=== PATIENT | male | born 1990 | race Caucasian/White ===

== ENCOUNTER 2025-10-15 20:45 | Observation (INO) | payer OTHER, SELFPAY ==
[2025-10-15 20:02] VITALS: BP 110/68; PULSE 75; RESP 16; TEMP 36.5; O2SAT 99
[2025-10-15 20:18] VITALS: BMI 20.1
[2025-10-15 20:44] VITALS: O2SAT 100
[2025-10-15] MEDS: 0.9% Saline Lock 10 ML Syringe IV (21:21)
[2025-10-15] MEDS: Piperacil/Tazobactam 3.375 GM in 0.9% Normal Saline (50mL MB+) 50 ML IV (21:21)
[2025-10-15] MEDS: 0.9% Normal Saline (1000mL) 1,000 ML 100 ML IV (21:21)
--- OUTSIDE RECORDS SUMMARY | 2025-10-15 21:26 | XMS RPT_ITS | CCD ---
Author Organization [facility] Informat ion Partnership [facility] Care Team Providers Care Operations And Maintenance Manager Name Role Phone Unavailable Primary Care Provider UnavailKEANU Bay DO Primary Care Unavailable KEANU SPANGLER DO Attending Unavailable KEANU SPANGLER DO Attending Unavailable KEANU SPANGLER DO Primary Care Unavailable Problems Problem Classification Problem Date Documented Da te Episodic/Chronic Immunizations and screening for infectious disease (2 sources) Encounter for screening for other viral diseases; Translations: [Encounter for screening for other viral diseases] Onset: 11-28-2023 Episodic Results Test Name Value Interpretation Reference Range Facility .Auto Diffon 11-28-2023 Basophil, Absolute 0.0 10 3/mcL Normal 0.0-0.3 [facility] ([place]) Comment on above: Performed By: #### LIPID, CBC, CMP, ANEU , ADIFF, GFR, HCV1 #### [address] [address] Basophils/100 WBC (Bld) 0.2 % Normal 0.0-2.5 [facility] ([place]) Comment on above: Performed By: #### LIPID, CBC, CMP, ANEU , ADIFF, GFR, HCV1 #### [address] [address] Eosinophil, Absolute 0.1 10 3/mcL Normal 0.0-0.7 [facility] ([place]) Comment on above: Performed By: #### LIPID, CBC, CMP, ANEU , ADIFF, GFR, HCV1 #### [address] [address] Eosinophils/1 00 WBC (Bld) 1.1 % Normal 0.0-6.0 [facility] ([place]) Comment on above: Performed By: #### LIPID, CBC, CMP, ANEU , ADIFF, GFR, HCV1 #### [address] [address] Lymphocyte, Absolute 0.8 10 3/mcL Low 0.9-4.3 [facility] ([place]) Comment on above: Performed By: #### LIPID, CBC, CMP, ANEU , ADIFF, GFR, HCV1 #### [address] [address] Lymphocytes/1 00 WBC (Bld) 8.3 % Low 20.0-40.0 [facility] ([place]) Comment on above: Performed By: #### LIPID, CBC, CMP, ANEU , ADIFF, GFR, HCV1 #### [address] [address] Monocyte, Absolute 0.8 10 3/mcL Normal 0.1-1.4 [facility] ([place]) Comment on above: Performed By: #### LIPID, CBC, CMP, ANEU , ADIFF, GFR, HCV1 #### [address] [address] Monocytes/100 WBC (Bld) 8.6 % Normal 2.0-13.0 [facility] ([place]) Comment on above: Performed By: #### LIPID, CBC, CMP, ANEU , ADIFF, GFR, HCV1 #### [address] [address] Neutrophils/1 00 WBC (Bld) 81.8 % High 50.0-75.0 [facility] ([place]) Comment on above: Performed By: #### LIPID, CBC, CMP, ANEU , ADIFF, GFR, HCV1 #### [address] [address] .GFRon 11-28-2023 GFR >60 Normal [facility] ([place]) Comment on above: Result Comment: GFR Population mean for , Non- Americans Ages 20-29 = 116 mL/min/1.73 sq.m. Ages 30-39 = 107 mL/min/1.73 sq.m. Ages 40-49 = 99 mL/min/1.73 sq.m. Ages 50-59 = 93 mL/min/1.73 sq.m. Ages 60-69 = 85 mL/min/1.73 sq.m. Ages 70+ = 75 mL/min/1.73 sq.m. Chronic Kidney Disease: Less than 60 mL/min/1.73 square meters End Stage Renal Disease: Less than 15 mL/min/1.73 square meters Performed By: #### L IPID, CBC, CMP, ANEU, ADIFF, GFR, HCV1 #### [address] [address] GFR Non- >60 Normal [facility] ([place]) Comment on above: Result Comment: GFR Population mean for , Non- Americans Ages 20-29 = 116 mL/min/1.73 sq.m. Ages 30-39 = 107 mL/min/1.73 sq.m. Ages 40-49 = 99 mL/min/1.73 sq.m. Ages 50-59 = 93 mL/min/1.73 sq.m. Ages 60-69 = 85 mL/min/1.73 sq.m. Ages 70+ = 75 mL/min/1.73 sq.m. Chronic Kidney Disease: Less than 60 mL/min/1.73 square meters End Stage Renal Disease: Less than 15 mL/min/1.73 square meters Performed By: #### L IPID, CBC, CMP, ANEU, ADIFF, GFR, HCV1 #### [address] [address] .NEUABSon 11-28-2023 Neutrophil, Absolute 7.9 10 3/mcL Normal 2.3-8.1 [facility] ([place]) Comment on above: Performed By: #### LIPID, CBC, CMP, ANEU , ADIFF, GFR, HCV1 #### [address] [address] CBCon 11-28-2023 Erythrocyte distribution width (RBC) [Ratio] 13.3 % Normal 11.5-15.5 [facility] ([place]) Comment on above: Performed By: #### LIPID, CBC, CMP, ANEU , ADIFF, GFR, HCV1 #### [address] [address] Hematocrit (Bld) [Volume fraction] 46.3 % Normal 40.0-52.0 [facility] ([place]) Comment on above: Performed By: #### LIPID, CBC, CMP, ANEU , ADIFF, GFR, HCV1 #### [address] [address] Hgb 16.1 G/dL Normal 13.0-17.5 [facility] ([place]) Comment on above: Performed By: #### LIPID, CBC, CMP, ANEU , ADIFF, GFR, HCV1 #### [place] [address] MCH (RBC) [Entitic mass] 33.8 pg High 27.0-33.0 [facility] ([place] Comment on above: Performed By: #### LIPID, CBC, CMP, ANEU , ADIFF, GFR, HCV1 #### [place] [address] MCHC 34.7 G/dL Normal 32.0-36.0 [facility] ([place]) Comment on above: Performed By: #### LIPID, CBC, CMP, ANEU , ADIFF, GFR, HCV1 #### [place] [address] MCV (RBC) [Entitic vol] 97.5 fL Normal 81.0-100.0 [facility] ([place]) Comment on above: Performed By: #### LIPID, CBC, CMP, ANEU , ADIFF, GFR, HCV1 #### [place] [id number] Platelet 219 10 3/mcL Normal 150-450 [facility] ([place]) Comment on above: Performed By: #### LIPID, CBC, CMP, ANEU , ADIFF, GFR, HCV1 #### [place] [address] Platelet mean volume (Bld) [Entitic vol] 9.0 fL Normal 6.4-10.5 [facility] ([place]) Comment on above: Performed By: #### LIPID, CBC, CMP, ANEU , ADIFF, GFR, HCV1 #### [place] [address] RBC 4.75 10 6/mcL Normal 4.50-6.00 [facility] ([place]) Comment on above: Performed By: #### LIPID, CBC, CMP, ANEU , ADIFF, GFR, HCV1 #### [address] [address] WBC 9.7 10 3/mcL Normal 4.5-10.8 [facility] ([place]) Comment on above: Performed By: #### LIPID, CBC, CMP, ANEU , ADIFF, GFR, HCV1 #### [address] [address] CMPon 11-28-2023 Albumin Level 4.6 G/dL Normal 3.2-4.8 [facility] ([place]) Comment on above: Performed By: #### LIPID, CBC, CMP, ANEU , ADIFF, GFR, HCV1 #### [address] [address] Albumin/Globu roberto [Mass ratio] 1.9 {ratio} High 0.9-1.6 [facility] ([place]) Comment on above: Performed By: #### LIPID, CBC, CMP, ANEU , ADIFF, GFR, HCV1 #### [address] [address] ALP [Catalytic activity/Vol] 73 U/L Normal 38-126 [facility] ([place]) Comment on above: Performed By: #### LIPID, CBC, CMP, ANEU , ADIFF, GFR, HCV1 #### [address] [address] ALT [Catalytic activity/Vol] 15 U/L Normal 12-55 [facility] ([place]) Comment on above: Performed By: #### LIPID, CBC, CMP, ANEU , ADIFF, GFR, HCV1 #### [address] [address] AST [Catalytic activity/Vol] 17 U/L Normal 8-34 [facility] ([place]) Comment on above: Performed By: #### LIPID, CBC, CMP, ANEU , ADIFF, GFR, HCV1 #### [address] [address] Bili Total 1.60 mg/dL High 0.20-1.20 [facility] ([place]) Comment on above: Result Comment: Use of this assay is not recommended for patients undergoing treatment with eltrombopag due to the potential for falsely elevated results. Performed By: #### L IPID, CBC, CMP, ANEU, ADIFF, GFR, HCV1 #### [address] [address] BUN/Creatinin e Ratio 15.5 ratio Normal 10.0-22.0 [facility] ([place]) Comment on above: Performed By: #### LIPID, CBC, CMP, ANEU , ADIFF, GFR, HCV1 #### [place] [id number] Calcium [Mass/Vol] 9.7 mg/dL Normal 8.7-10.4 [facility] ([place]) Comment on above: Performed By: #### LIPID, CBC, CMP, ANEU , ADIFF, GFR, HCV1 #### [place] [id number] Chloride [Moles/Vol] 109 mmol/L Normal 98-110 [facility] ([place]) Comment on above: Performed By: #### LIPID, CBC, CMP, ANEU , ADIFF, GFR, HCV1 #### [place] [address] CO2 [Moles/Vol] 24 mmol/L Normal 22-32 [facility] ([place]) Comment on above: Performed By: #### LIPID, CBC, CMP, ANEU , ADIFF, GFR, HCV1 #### [place] [id number] Creatinine [Mass/Vol] 0.97 mg/dL Normal 0.60-1.40 [facility] ([place]) Comment on above: Performed By: #### LIPID, CBC, CMP, ANEU , ADIFF, GFR, HCV1 #### [place] [address] Electrolyte Balance 6.0 mEq/L Normal 4.0-15.0 [facility] ([place]) Comment on above: Performed By: #### LIPID, CBC, CMP, ANEU , ADIFF, GFR, HCV1 #### [address] [address] Globulin 2.4 G/dL Normal 1.5-3.8 [facility] ([place]) Comment on above: Performed By: #### LIPID, CBC, CMP, ANEU , ADIFF, GFR, HCV1 #### [address] [address] Glucose [Mass/Vol] 93 mg/dL Normal 70-110 [facility] ([place]) Comment on above: Performed By: #### LIPID, CBC, CMP, ANEU , ADIFF, GFR, HCV1 #### [address] [address] Potassium [Moles/Vol] 3.6 mmol/L Normal 3.5-5.0 [facility] ([place]) Comment on above: Result Comment: Specimen slightly hemoly zed. Performed By: #### L IPID, CBC, CMP, ANEU, ADIFF, GFR, HCV1 #### [place] [id number] Sodium [Moles/Vol] 139 mmol/L Normal 136-145 [facility] ([place]) Comment on above: Performed By: #### LIPID, CBC, CMP, ANEU , ADIFF, GFR, HCV1 #### [place] [id number] Total Protein 7.0 G/dL Normal 5.7-8.2 [facility] ([place]) Comment on above: Result Comment: Note - New Reference Gilberto padgett in effect 05/30/20 Performed By: #### L IPID, CBC, CMP, ANEU, ADIFF, GFR, HCV1 #### [address] [address] Urea nitrogen [Mass/Vol] 15.0 mg/dL Normal 8.0-22.0 [facility] ([place]) Comment on above: Performed By: #### LIPID, CBC, CMP, ANEU , ADIFF, GFR, HCV1 #### [address] [address] HCVon 11-28-2023 Hep C Ab Non-Reactive Normal Non-Reacti ve [facility] ([place]) Comment on above: Performed By: #### LIPID, CBC, CMP, ANEU , ADIFF, GFR, HCV1 #### [address] [address] Hep C Ab Int Normal [facility] ([place]) Comment on above: Result Comment: Nonreactive: Samples wit h a value < 0.80 are considered nonreactive (negative) for antibodies to HCV. A negative test result does not exclude the possibility of exposure to or infection with HCV. HCV antibodies may be undetectable in some stages of the infection and in some clinical conditions. See Interp Performed By: #### L IPID, CBC, CMP, ANEU, ADIFF, GFR, HCV1 #### [address] [address] LIPIDon 11-28-2023 Cholesterol [Mass/Vol] 164 mg/dL Normal 50-199 [facility] ([place]) Comment on above: Result Comment: Cholesterol Reference In terval: Less than 200 Desirable 200-239 Borderline high risk 240 and above High risk Performed By: #### L IPID, CBC, CMP, ANEU, ADIFF, GFR, HCV1 #### [address] [address] Cholesterol in HDL [Mass/Vol] 51 mg/dL Normal 40-59 [facility] ([place]) Comment on above: Performed By: #### LIPID, CBC, CMP, ANEU , ADIFF, GFR, HCV1 #### [address] [address] Cholesterol in LDL [Mass/Vol] 98 mg/dL Normal 0-129 [facility] ([place]) Comment on above: Performed By: #### LIPID, CBC, CMP, ANEU , ADIFF, GFR, HCV1 #### [address] [address] Triglyceride [Mass/Vol] 75 mg/dL Normal 3-149 [facility] ([place]) Comment on above: Performed By: #### LIPID, CBC, CMP, ANEU , ADIFF, GFR, HCV1 #### [address] [address] MSCon 01-16-2022 [facility] REPORT Normal [facility] DATE OF SERVICE: 07/2022 HISTORY OF PRESENT ILLNESS: This is a 31-year-old male with sore throat, tired, cough, body aches. He said that he had COVID back in October and it feels like a light version of COVID, so he presents now for further evaluation. ALLERGIES: No known drug allergies. PAST MEDICAL HISTORY: Unremarkable. SMOKING HISTORY: He does use a vape pin and does use alcohol. FAMILY HISTORY: Unremarkable. SOCIAL HISTORY: Unremarkable. PHYSICAL EXAMINATION: Vital signs: Weight 147.2 pounds. Blood pressure 114/65, pulse 92, respiratory rate 19, temperature 97.9, pulse oximetry is 98% on room air. General: This is a 31-year-old male. HEENT: Pharynx is inflamed. Neck is supple with positive anterior, negative posterior cervical lymphadenopathy. Heart is regular rate and rhythm. Lungs: Harsh inspiratory and expiratory wheezes are noted with rhonchi. No areas of consolidation or solid pneumonia could be appreciated. Extremities and neurologic were grossly intact. IMPRESSION: Influenza. [facility] PATIENT NAME: SAGAR AYALA [address] [place] MEDICAL REC #: [id number] [place] [address] [facility] REPORT [facility] PHYSICIAN PLAN: Off work until Friday, January 21, 2022. Given Tamiflu 75 mg twice a day for 5 days. Tessalon Perles and chlorpheniramine 4 mg once 4 times a day as needed for congestion. Rest, fluids. Finish all medicines. Follow in 7 to 10 days. Sooner if complications or problems arise. DO KLEBER [id number] SSI File#: [id number] END OF DOCUMENT / CHANGE LOG FOLLOWS Last Edited By Sofie. Signed By Parvin Walters DO #Parvin Davis DO #JULIOCESAR on 01/22/2022 20:56 ET on 01/22/2022 20:56 ET Revision Number - 2 Verified/Reviewed by 01/22/222055 JULIOCESAR [facility] PATIENT NAME: SAGAR AYALA [facility] [address] [place] MEDICAL REC #: [id number] [place] [address] [facility] REPORT STATCARE PHYSICIAN Normal [facility] Encounters Encounter Date Encounter Type Care Provider Facility Start: 11-28-2023 End: 12-03-2023 ambulatory KEANU SPANGLER DO Facility:A Start: 11-28-2023 End: 12-03-2023 Encounter for general adult medical examination without abnormal findings KEANU SPANGLER DO Facility:A Start: 05-17-2023 End: 05-18-2023 ambulatory KEANU SPANGLER DO Facility:A Start: 01-16-2022 End: 01-16-2022 Subsequent hospital visit by physician Parvin Walters Work Phone: [facility] Comment on above: SORE THROAT Payers Date Payer Category Payer Unknown [id number] 1990 Unknown [id number] 1990 Unknown [id number] Social History Date Type Detail Facility Tobacco smoking stat us NHIS Tobacco smoking consumption unknown [facility] Start: 1990 [facility] Assigned At [facility] on [facility] Summary Purpose Family History No Family History Records FoundNo Family History Records Found Advance Directives No Advanced Directives Records FoundNo Advanced Directives Records Found Additional Source Comments Source Comments (unrecognize d section and content) In the event this informatio n is protected by the Federal Confidentiality of Alcohol and Drug Abuse Patient Records regulations: The Federal rules restrict any use of the information to criminally investigate or prosecute any alcohol or drug abuse patient.[facility] (unrecognized sect ion and content) No Status Records FoundNo Status Records Found INFORMATION SOURCE (unrecogn ized section and content) DATE CREATED AUTHOR 01/23/2022 [facility] DATE CREATED AUTHOR AUTHOR'S ORGANIZ ATION 12/05/2023 [facility] ([place]) FOR RECORDS PERTAINING TO PATIENTS WHO ARE OR HAVE BEEN ENROLLED IN A CHEMICAL DEPENDENCY/SUBSTANCEABUSE PROGRAM, SOME INFORMATION MAY BE OMITTED. This clinical summary was aggregated from multiple sources. Caution should be exercised in using it in the provision of clinical care. This summary normalizes information from multiple sources, and as a consequence, information in this document may materially change the coding, format and clinical context of patient data. In addition, data may be omitted in some cases. CLINICAL DECISIONS SHOULD BE BASED ON THE PRIMARY CLINICAL RECORDS. [employer] [facility]. provides no warranty or guarantee of the accuracy or completeness of information in this document.
--- OUTSIDE RECORDS SUMMARY | 2025-10-15 21:27 | XMS RPT_ITS | CCD ---
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 Role Phone Unavailable Primary Care Provider [...] Basophil, Absolute 0.0 10 3/mcL Normal 0.0-0.3 [facility] ([place]) Comment on above: Performed By: #### LIPID, CBC, CMP, ANEU , ADIFF, GFR, HCV1 #### [address] [address] Basophils/100 WBC (Bld) 0.2 % Normal 0.0-2.5 [facility] ([place]) Comment on above: Performed By: #### LIPID, CBC, CMP, ANEU , ADIFF, GFR, HCV1 #### [address] [address] Eosinophil, Absolute 0.1 10 3/mcL Normal 0.0-0.7 [facility] ([place]) Comment on above: Performed By: #### LIPID, CBC, CMP, ANEU , ADIFF, GFR, HCV1 #### [address] [address] Eosinophils/1 00 WBC (Bld) 1.1 % Normal 0.0-6.0 [facility] ([place]) Comment on above: Performed By: #### LIPID, CBC, CMP, ANEU , ADIFF, GFR, HCV1 #### [address] [address] Lymphocyte, Absolute 0.8 10 3/mcL Low 0.9-4.3 [facility] ([place]) Comment on above: Performed By: #### LIPID, CBC, CMP, ANEU , ADIFF, GFR, HCV1 #### [address] [address] Lymphocytes/1 00 WBC (Bld) 8.3 % Low 20.0-40.0 [facility] ([place]) Comment on above: Performed By: #### LIPID, CBC, CMP, ANEU , ADIFF, GFR, HCV1 #### [address] [address] Monocyte, Absolute 0.8 10 3/mcL Normal 0.1-1.4 [facility] ([place]) Comment on above: Performed By: #### LIPID, CBC, CMP, ANEU , ADIFF, GFR, HCV1 #### [address] [address] Monocytes/100 WBC (Bld) 8.6 % Normal 2.0-13.0 [facility] ([place]) Comment on above: Performed By: #### LIPID, CBC, CMP, ANEU , ADIFF, GFR, HCV1 #### [address] [address] Neutrophils/1 00 WBC (Bld) 81.8 % High 50.0-75.0 [facility] ([place]) Comment on above: Performed By: #### LIPID, CBC, CMP, ANEU , ADIFF, GFR, HCV1 #### [address] [address] .GFRon 11-28-2023 GFR >60 Normal [facility] ([place]) Comment on above: Result Comment: GFR [...] CBC, CMP, ANEU, ADIFF, GFR, HCV1 #### [address] [address] GFR Non- >60 Normal [facility] ([place]) Comment on above: Result Comment: GFR Population [...] CBC, CMP, ANEU, ADIFF, GFR, HCV1 #### [address] [address] .NEUABSon 11-28-2023 Neutrophil, Absolute 7.9 10 3/mcL Normal 2.3-8.1 [facility] ([place] Comment on above: Performed By: #### LIPID, CBC, CMP, ANEU , ADIFF, GFR, HCV1 #### [address] [address] CBCon 11-28-2023 Erythrocyte distribution width (RBC) [Ratio] 13.3 % Normal 11.5-15.5 [facility] ([place] Comment on above: Performed By: #### LIPID, CBC, CMP, ANEU , ADIFF, GFR, HCV1 #### [address] [address] Hematocrit (Bld) [Volume fraction] 46.3 % Normal 40.0-52.0 [facility] ([place] Comment on above: Performed By: #### LIPID, CBC, CMP, ANEU , ADIFF, GFR, HCV1 #### [address] [address] Hgb 16.1 G/dL Normal 13.0-17.5 [facility] ([place] Comment on above: Performed By: #### LIPID, CBC, CMP, ANEU , ADIFF, GFR, HCV1 #### [place] [address] MCH (RBC) [Entitic mass] 33.8 pg High 27.0-33.0 [facility] ([place] Comment on above: Performed By: #### LIPID, CBC, CMP, ANEU , ADIFF, GFR, HCV1 #### [place] [address] MCHC 34.7 G/dL Normal 32.0-36.0 [facility] ([place] Comment on above: Performed By: #### LIPID, CBC, CMP, ANEU , ADIFF, GFR, HCV1 #### [place] [address] MCV (RBC) [Entitic vol] 97.5 fL Normal 81.0-100.0 [facility] ([place] Comment on above: Performed By: #### LIPID, CBC, CMP, ANEU , ADIFF, GFR, HCV1 #### [place] [id number] Platelet 219 10 3/mcL Normal 150-450 [facility] ([place]) Comment on above: Performed By: #### LIPID, CBC, CMP, ANEU , ADIFF, GFR, HCV1 #### [place] [address] Platelet mean volume (Bld) [Entitic vol] 9.0 fL Normal 6.4-10.5 [facility] ([place] Comment on above: Performed By: #### LIPID, CBC, CMP, ANEU , ADIFF, GFR, HCV1 #### [place] [address] RBC 4.75 10 6/mcL Normal 4.50-6.00 [facility] ([place]) Comment on above: Performed By: #### LIPID, CBC, CMP, ANEU , ADIFF, GFR, HCV1 #### [address] [address] WBC 9.7 10 3/mcL Normal 4.5-10.8 [facility] ([place] Comment on above: Performed By: #### LIPID, CBC, CMP, ANEU , ADIFF, GFR, HCV1 #### [address] [address] CMPon 11-28-2023 Albumin Level 4.6 G/dL Normal 3.2-4.8 [facility] ([place]) Comment on above: Performed By: #### LIPID, CBC, CMP, ANEU , ADIFF, GFR, HCV1 #### [address] [address] Albumin/Globu roberto [Mass ratio] 1.9 {ratio} High 0.9-1.6 [facility] ([place] Comment on above: Performed By: #### LIPID, CBC, CMP, ANEU , ADIFF, GFR, HCV1 #### [address] [address] ALP [Catalytic activity/Vol] 73 U/L Normal 38-126 [facility] ([place] Comment on above: Performed By: #### LIPID, CBC, CMP, ANEU , ADIFF, GFR, HCV1 #### [address] [address] ALT [Catalytic activity/Vol] 15 U/L Normal 12-55 [facility] ([place] Comment on above: Performed By: #### LIPID, CBC, CMP, ANEU , ADIFF, GFR, HCV1 #### [address] [address] AST [Catalytic activity/Vol] 17 U/L Normal 8-34 [facility] ([place] Comment on above: Performed By: #### LIPID, CBC, CMP, ANEU , ADIFF, GFR, HCV1 #### [address] [address] Bili Total 1.60 mg/dL High 0.20-1.20 [facility] ([place]) Comment on above: Result Comment: Use of this assay is not recommended for patients undergoing treatment with eltrombopag due to the potential for falsely elevated results. Performed By: #### L IPID, CBC, CMP, ANEU, ADIFF, GFR, HCV1 #### [address] [address] BUN/Creatinin e Ratio 15.5 ratio Normal 10.0-22.0 [facility] ([place] Comment on above: Performed By: #### LIPID, CBC, CMP, ANEU , ADIFF, GFR, HCV1 #### [place] [id number] Calcium [Mass/Vol] 9.7 mg/dL Normal 8.7-10.4 [facility] ([place] Comment on above: Performed By: #### LIPID, CBC, CMP, ANEU , ADIFF, GFR, HCV1 #### [place] [id number] Chloride [Moles/Vol] 109 mmol/L Normal 98-110 [facility] ([place] Comment on above: Performed By: #### LIPID, CBC, CMP, ANEU , ADIFF, GFR, HCV1 #### [place] [address] CO2 [Moles/Vol] 24 mmol/L Normal 22-32 [facility] ([place] Comment on above: Performed By: #### LIPID, CBC, CMP, ANEU , ADIFF, GFR, HCV1 #### [place] [id number] Creatinine [Mass/Vol] 0.97 mg/dL Normal 0.60-1.40 [facility] ([place]) Comment on above: Performed By: #### LIPID, CBC, CMP, ANEU , ADIFF, GFR, HCV1 #### [place] [address] Electrolyte Balance 6.0 mEq/L Normal 4.0-15.0 [facility] ([place] Comment on above: Performed By: #### LIPID, CBC, CMP, ANEU , ADIFF, GFR, HCV1 #### [address] [address] Globulin 2.4 G/dL Normal 1.5-3.8 [facility] ([place] Comment on above: Performed By: #### LIPID, CBC, CMP, ANEU , ADIFF, GFR, HCV1 #### [address] [address] Glucose [Mass/Vol] 93 mg/dL Normal 70-110 [facility] ([place] Comment on above: Performed By: #### LIPID, CBC, CMP, ANEU , ADIFF, GFR, HCV1 #### [address] [address] Potassium [Moles/Vol] 3.6 mmol/L Normal 3.5-5.0 [facility] ([place] Comment on above: Result Comment: Specimen slightly hemoly zed. Performed By: #### L IPID, CBC, CMP, ANEU, ADIFF, GFR, HCV1 #### [place] [id number] Sodium [Moles/Vol] 139 mmol/L Normal 136-145 [facility] ([place] Comment on above: Performed By: #### LIPID, CBC, CMP, ANEU , ADIFF, GFR, HCV1 #### [place] [id number] Total Protein 7.0 G/dL Normal 5.7-8.2 [facility] ([place]) Comment on above: Result Comment: Note - New Reference Gilberto padgett in effect 05/30/20 Performed By: #### L IPID, CBC, CMP, ANEU, ADIFF, GFR, HCV1 #### [address] [address] Urea nitrogen [Mass/Vol] 15.0 mg/dL Normal 8.0-22.0 [facility] ([place] Comment on above: Performed By: #### LIPID, CBC, CMP, ANEU , ADIFF, GFR, HCV1 #### [address] [address] HCVon 11-28-2023 Hep C Ab Non-Reactive Normal Non-Reacti ve [facility] ([place] Comment on above: Performed By: #### LIPID, CBC, CMP, ANEU , ADIFF, GFR, HCV1 #### [address] [address] Hep C Ab Int Normal [facility] ([place] Comment on above: Result Comment: Nonreactive: Samples [...] CBC, CMP, ANEU, ADIFF, GFR, HCV1 #### [address] [address] LIPIDon 11-28-2023 Cholesterol [Mass/Vol] 164 mg/dL Normal 50-199 [facility] ([place] Comment on above: Result Comment: Cholesterol Reference In terval: Less than 200 Desirable 200-239 Borderline high risk 240 and above High risk Performed By: #### L IPID, CBC, CMP, ANEU, ADIFF, GFR, HCV1 #### [address] [address] Cholesterol in HDL [Mass/Vol] 51 mg/dL Normal 40-59 [facility] ([place] Comment on above: Performed By: #### LIPID, CBC, CMP, ANEU , ADIFF, GFR, HCV1 #### [address] [address] Cholesterol in LDL [Mass/Vol] 98 mg/dL Normal 0-129 [facility] ([place]) Comment on above: Performed By: #### LIPID, CBC, CMP, ANEU , ADIFF, GFR, HCV1 #### [address] [address] Triglyceride [Mass/Vol] 75 mg/dL Normal 3-149 [facility] ([place] Comment on above: Performed By: #### LIPID, CBC, CMP, ANEU , ADIFF, GFR, HCV1 #### [address] [address] MSCon 01-16-2022 [facility] REPORT Normal [facility] DATE OF SERVICE: 07/2022 HISTORY OF [...] and neurologic were grossly intact. IMPRESSION: Influenza. [facility] PATIENT NAME: SAGAR AYALA [address] [facility] MEDICAL REC #: [id number] [place] [address] [facility] REPORT [facility] PHYSICIAN PLAN: Off work until Friday, January 21, 2022. Given Tamiflu 75 mg twice a day for 5 days. Tessalon Perles and chlorpheniramine 4 mg once 4 times a day as needed for congestion. Rest, fluids. Finish all medicines. Follow in 7 to 10 days. Sooner if complications or problems arise. DO KLEBER Raya/[id number] SSI File#: [id number] END OF DOCUMENT / CHANGE LOG FOLLOWS Last Edited By Sofie. Signed By Parvin Walters DO #Parvin Davis DO #JULIOCESAR on 01/22/2022 20:56 ET on 01/22/2022 20:56 ET Revision Number - 2 Verified/Reviewed by 01/22/222055 JULIOCESAR [facility] PATIENT NAME: SAGAR AYALA [facility] [address] MEDICAL REC #: [id number] [place] [address] [facility] REPORT [facility] PHYSICIAN Normal [facility] Encounters Encounter Date Encounter Type Care Provider Facility Start: 11-28-2023 End: 12-03-2023 ambulatory KEANU SPANGLER DO Facility:A Start: 11-28-2023 End: 12-03-2023 Encounter for general adult medical examination without abnormal findings KEANU SPANGLER DO Facility:A Start: 05-17-2023 End: 05-18-2023 ambulatory KEANU PSANGLER DO Facility:A Start: 01-16-2022 End: 01-16-2022 Subsequent hospital visit by physician Parivn Walters Work Phone: [facility] Comment on above: SORE THROAT Payers Date Payer Category Payer Unknown [id number] 1990 Unknown [id number] 1990 Unknown [id number] Social History Date Type Detail Facility Tobacco smoking stat us NHIS Tobacco smoking consumption unknown [facility] Start: 1990 Sex Assigned At Not on file [facility] Summary Purpose Family History No Family [...] or prosecute any alcohol or drug abuse patient.[facility] (unrecognized sect ion and content) No Status Records FoundNo Status Records Found INFORMATION SOURCE (unrecogn ized section and content) DATE CREATED AUTHOR 01/23/2022 [facility] DATE CREATED AUTHOR AUTHOR'S ORGANIZ ATION 12/05/2023 [facility] ([place] FOR RECORDS PERTAINING TO PATIENTS WHO ARE [...] BE BASED ON THE PRIMARY CLINICAL RECORDS. [employer] [facility]. provides no warranty or guarantee of the accuracy or completeness of information in this document.
[2025-10-16] VITALS (15 sets, daily range): BP systolic 99–125; BP diastolic 58–77; PULSE 60–109; RESP 14–18; TEMP 36.6–37.1; O2SAT 98–100; BMI 20.1
[2025-10-16] MEDS: Piperacil/Tazobactam 3.375 GM in 0.9% Normal Saline (50mL MB+) 50 ML IV (05:28)
[2025-10-16] MEDS: 0.9% Normal Saline (1000mL) 1,000 ML 100 ML IV (05:28)
--- NOTE | 2025-10-16 08:11 | PCM.HP.STD ---
HPI - General General Date of Admission: 10/15/25 HPI Narrative SAGAR AYALA, is a 35 M who presents with abdominal pain. The patient reports his abdominal pain is improved since yesterday. The patient reports that yesterday he had nausea and pain in the right lower quadrant. He denies vomiting or fevers or chills. [facility] Medical History no medical history Allergy/AdvReac Type Severity Reaction Status Date / Time No Known Allergies Allergy Verified 10/15/25 20:26 Social History Smoking Status: Current some day smoker tobacco type: e-cigarettes ROS Constitutional Constitutional: Denies anorexia, chills, fatigue or fever(s) Eyes Eyes: Denies blurry vision Cardiovascular Cardiovascular: Denies chest pain Respiratory/Chest Respiratory/Chest: Denies cough or dyspnea Gastrointestinal Gastrointestinal: Reports abdominal pain and nausea; Denies constipation or vomiting Musculoskeletal Musculoskeletal: Denies abnormal gait Integumentary Integumentary: Denies jaundice Neurologic Neurologic: Denies abnormal gait Vital Signs Vital Signs Vital Signs: 10/15/25 20:02 10/15/25 20:44 10/15/25 23:05 Temperature 97.7 F L Temperature Source Oral Pulse Rate 75 Pulse Strength Normal (2+) Respiratory Rate 16 Respiratory Effort Normal Respiratory Depth Normal Respiratory Pattern Normal Blood Pressure 110/68 Blood Pressure Mean 82 Blood Pressure Source Monitor Blood Pressure Position Sitting Blood Pressure Location Right Arm Pulse Ox 99 100 Oxygen Delivery Method Room Air Room Air 10/16/25 05:31 Temperature 97.8 F Temperature Source Temporal Pulse Rate 62 Pulse Strength Respiratory Rate 16 Respiratory Effort Respiratory Depth Respiratory Pattern Blood Pressure 106/61 Blood Pressure Mean 76 Blood Pressure Source Monitor Blood Pressure Position Semi-Fowlers Blood Pressure Location Right Arm Pulse Ox 98 Oxygen Delivery Method Room Air Weight Weight: 144 lb 9.972 oz Body Mass Index (BMI) 20.1 Physical Exam Const oriented x3 and no apparent distress Resp normal respiratory effort Cardio regular rate and regular rhythm GI soft to palpation Palpation: tender Positive for RLQ Assessment & Plan Assessment/Plan (1) Acute appendicitis: PLAN: The patient was transferred from an outside ER with signs and symptoms of acute appendicitis. CT scan also revealed inflamed appendix with trace fluid in the pelvis. I discussed laparoscopic appendectomy with the patient in detail. I discussed the risks including but not limited to bleeding, infection, injury to other organs around the appendix such as the bowel, bladder, ureter. Patient understands the risks and is willing to proceed with surgery. Alin Solo MD Pager: [facility] [address] [place] [address], [address] [place] [address] Office:
--- NOTE | 2025-10-16 09:10 | PCM.PRE.AN2 ---
ASA Classification* ASA Classification ASA Classification: 2 and E Assessment & Plan Anesthesia* Anesthesia Assessment Anesthesia Assessment: Discussed sedation and/or anesthesia options, risks, benefits, and alternatives with patient/parents/legal guardian/POA. Questions invited. The patient/parents/legal guardian/POA seems to understand and agrees to proceed with anesthesia plan. Reviewed the physical assessment, medical history, allergy history and patient home medications list prior to surgery/procedure/anesthetic and documented any changes. Performed airway and anesthesia risk assessments. Anesthesia Type Anesthesia Type: General Anesthesia Focused Assessment* Temperature: 98 F Pulse Rate: 64 Blood Pressure: 99/61 Respiratory Rate: 18 Pulse Ox: 98 Airway Assessment Mouth opens: >3 cm Mallampati Score: II Labs Anesthesia Preop lab: CBC CHEMISTRY COAG Pre-Assessment Diagnosis/Proposed Procedure Planned Operative Procedure(s): Laproscopic Appendectomy Anesthesia History Anesthesia History - weather observer: Anesthesia History - weather observer Hx Hospitalization Any Problems With Anesthesia No 10/15/25 20:55 Cholinesterase deficiency No 10/15/25 20:55 You/Your Family Experience No 10/15/25 20:55 fever (hyperthermia) with Relationship Recent Exposure to Contagious No 10/15/25 20:55 Disease Does patient have nerve No 10/15/25 20:55 stimulator Patient instructed to have No 10/15/25 20:55 device shut off --Does patient have Pacemaker No 10/16/25 08:54 or ICD? When Was Last Pacemaker Check QUESTION #4 FULL TEXT: You/Your Family Experience fever (hyperthermia) with Anesthesia Last Oral Intake Last Oral intake: Last Oral Intake NPO since 19:00 10/16/25 08:54 Meds taken in AM with sips of water? Meds patient instructed to npo since 189910/15/25 10/16/25 08:54 take am of surgery PONV PONV - weather observer: PONV - weather observer Female HX of Motion Sickness HX of N/V After Surgery Non-Smoker Duration of Surgery greater than 60 minutes Number of Risk Factors PONV Score Height & Weight Height & Weight: Anesthesia: Height & Weight Height 5 ft 11 in 10/16/25 08:54 Weight: 65.6 kg 10/16/25 08:54 Body Mass Index (BMI) 20.1 10/16/25 08:54 Respiratory Assessment Respiratory Assessment - weather observer: Respiratory Tract Infection Hx - weather observer Hx Respiratory Tract Infection No 10/15/25 20:55 STOP Sleep Apnea STOP Sleep Apnea - weather observer: STOP Sleep Apnea - weather observer Hx Hypertension No 10/15/25 20:28 Hx Sleep Apnea No 10/15/25 20:28 CPAP BIPAP Do you snore loudly (louder No 10/15/25 20:28 than talking or can be heard Do you often feel tired/ No 10/15/25 20:28 fatigued/ sleepy during daytime? Has anyone observed you stop No 10/15/25 20:28 breathing during sleep? STOP Results Negative 10/15/25 20:28 QUESTION #5 FULL TEXT : Do you snore loudly (louder than talking or can be heard through closed doors)? 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 Specify any problems Hx of Preganancy in last 3 N/A 10/15/25 20:28 Months Nurse Filling Out Transfusion AHINES 10/15/25 20:28 & Questions: Date: 10/15/25 10/15/25 20:28 Time: 20:30 10/15/25 20:28 Patient unable to answer at this time (ie. confused, unrespo /Reproduction History /Reproductive History - weather observer: /Reproductive Hx- weather observer Hx Now No 10/15/25 20:55 Gestational Age (in weeks): EDC: Hx Hx Para Hx Section SAB No 10/15/25 20:55 Does the father of the baby or his family experience fever w Father of the baby Malignant Hypertension history comment Active Medications Active Medications: Current Medications Generic Name Dose Route Start Last Admin Trade Name Freq PRN Reason Stop Dose Admin Sodium Chloride 250 mls @ 15 mls/hr 10/15/25 20:21 IV .[id number] PRN Saline Flush Sodium Chloride 250 mls @ 15 mls/hr 10/15/25 20:21 IV .[id number] PRN Additional IVPB Infusion Sodium Chloride 1,000 mls @ 100 mls/hr 10/15/25 20:40 10/16/25 05:28 IV 100 mls/hr .Q10H GEORGE Administration Piperacillin Sod/Tazobactam 50 mls @ 12.5 mls/hr 10/15/25 22:00 10/16/25 05:28 Sod 3.375 gm/ Sodium Chloride IV 12.5 mls/hr Q8 GEORGE Administration Lactated Ringer's 1,000 mls @ 15 mls/hr 10/16/25 09:15 IV .Q48H GEORGE Influenza Virus Vacc Trival Recomb 45 mcg 10/16/25 10:00 Flu Vaccine (6mos Up) 45 Mcg/0.5 Ml Syringe IM 10/16/25 10:01 .ONCE ONE Morphine Sulfate 2 - 4 mg 10/15/25 20:37 Morphine 2 Mg/Ml Syringe IV Q2H PRN PRN Pain Score 1-10 Morphine Sulfate 2 - 4 mg 10/15/25 21:00 Morphine 4 Mg/Ml Syringe IV Q2H PRN PRN Pain Score 1-10 Ondansetron HCl 4 mg 10/15/25 20:42 Ondansetron 4 Mg/2 Ml Vial IV Q8H PRN PRN NAUSEA Sodium Chloride 10 - 40 ml 10/15/25 20:21 10/15/25 21:21 0.9% Saline Lock 10 Ml Syringe IV 10 ml UD PRN Administration SALINE FLUSH PFSH Medical History no medical history Allergy/AdvReac Type Severity Reaction Status Date / Time No Known Allergies Allergy Verified 10/15/25 20:26 Social History Smoking Status: Current some day smoker tobacco type: e-cigarettes Review of Systems (Anesthesia) ROS Narrative System reviewed and no additional complaints, except as documented.
--- NOTE | 2025-10-16 09:12 | NURSING ---
0900 patient down to surgery. family present Kelvin Zacarias RN
[2025-10-16] MEDS: Lactated Ringers 1,000 ML 15 ML IV (09:17)
[2025-10-16] MEDS: Midazolam 2 MG/2 ML Syringe IV (09:33)
[2025-10-16] MEDS: fentaNYL 100 MCG/2 ML Ampul IV (09:39)
[2025-10-16] MEDS: Lidocaine 1% (5 ml sdv) 5 ML Vial 3 ML IV (09:39)
[2025-10-16] MEDS: Bupiv/Epi 0.25% 30 ML Vial (09:58)
--- NOTE | 2025-10-16 10:02 | DS.PCM_ITS ---
Providers Date of Admission: 10/15/25 Primary Care Physician: Dr. Yuval Jerry DO Reason For Visit: APPENDICITIS Diagnosis Discharge Diagnosis (1) Acute appendicitis: Status: Acute Code(s): K35.80 - Unspecified acute appendicitis Plan: The patient was transferred from an outside ER with signs and symptoms of acute appendicitis. CT scan also revealed inflamed appendix with trace fluid in the pelvis. I discussed laparoscopic appendectomy with the patient in detail. I discussed the risks including but not limited to bleeding, infection, injury to other organs around the appendix such as the bowel, bladder, ureter. Patient understands the risks and is willing to proceed with surgery. Alin Solo MD Pager: [facility] [address] [place] [address] [address] [place] [address] Office: Medications at Discharge Home Medications oxycodone 5 mg tablet 5 - 10 mg (1 - 2 x 5 mg) PO Q4H PRN PRN Pain Score 4-10 5 days #14 tabs 10/16/25 Hospital Course Operations appendectomy Summary of Care Provided Hospital Course: Patient was admitted to the hospital overnight with right lower quadrant pain after being seen in outside hospital with acute appendicitis. The following morning the patient was taken for surgery and had laparoscopic appendectomy. Once tolerating diet the patient will be discharged home. Weight / BMI Weight Weight: 144 lb 9.972 oz Body Mass Index (BMI) 20.1 D/C Instructions Discharge Activity: May Not Drive (for 2-3 days or while taking narcotic pain medications) May shower in (days): 1 Lifting Restrictions: 15 pounds for 2 weeks. Take 1 week off of work. Additional Activity Instructions: Alternate ibuprofen and Tylenol for pain control, oxycodone for breakthrough pain Call your doctor if your incision/area has: Continuous Slow Oozing, Sudden Increased Bleeding, Increased Pain/ Swelling, Increased Redness and Foul Smelling Discharge Call your doctor if you observe: Fever of 101 or Higher Suture Line Care: Avoid Pulling/Pushing and Avoid Pinching/Bending Remove Dressing in: 2 days Cleanse incision/area with: Soap & Water DC O2, CPAP, BIPAP Needs Home O2 Discharge instructions: No Additional Instructions: Keep dressing clean and dry. Change or remove dressing in 2 days. Leave steri strips for 1 week. May protect with a gauze bandaid. Please Follow Up With: Alin Solo MD When: Please call to schedule 2 week follow up appointment at [phone] Meaningful Use Info Meaningful Use Meaningful Use Diagnoses (Choose all that apply): None applicable Discharge Plan Admission Admit Date/Time: 10/15/25 20:45 Attending Provider: Alin Solo Primary Care Provider: Yuval Jerry Discharge Orders/Prescriptions Prescriptions: New oxycodone 5 mg Tablet 5 - 10 mg PO Q4H PRN PRN (Reason: Pain Score 4-10) 5 Days Qty: 14 0RF Referrals / Follow Up: Yuval Jerry DO [Primary Care Provider, Medical] Disposition Disposition (needs filled in before D/C Order can be placed): Home, Self Care
--- NOTE | 2025-10-16 10:02 | PCM.OPRPT ---
Operative Report (Standard) Operative Information Date of Procedure: 10/16/25 Pre-Operative Diagnosis: Acute appendicitis Post-Operative Diagnosis: Acute appendicitis Surgery/Procedure Performed: Laparoscopic appendectomy order control clerk blood bank: No Type of Anesthesia: General/Regional RN Documented Start/Stop Times: Operation Date: 10/16/25 10:20 Case Time Anesthesia Start 10/16/25 09:24 Into Room 10/16/25 09:24 Procedure Start 10/16/25 09:42 Procedure End 10/16/25 09:58 Procedure Start Time: 09:42 Procedure Stop Time: 09:58 Select all DRAINS/GRAFTS/IMPLANTS that apply: None Estimated Blood Loss: 5 Specimen collected: Yes Description of specimen(s) removed: Appendix Description of surgery: The patient was brought into the operating room and general anesthesia was induced. The left arm was tucked and the abdomen was prepped and draped in usual sterile fashion. A small midline incision was made superior to the umbilicus and deepened to the level of the fascia. The fascia was elevated and incised. The peritoneum was also elevated and incised. A finger sweep was performed and a balloon trocar was placed into the abdomen and inflated. The abdomen was insufflated to 15 mmHg and the camera was inserted and the abdomen was inspected for any injuries upon entering the abdomen. There were none. The patient was placed in Trendelenburg position and a 5 mm ports placed in the left lower quadrant and suprapubic areas under direct visualization. Next using atraumatic bowel graspers the appendix was identified. The appendix was grasped and elevated and Enseal was used to take down the mesoappendix. A stapler was used to come across the base of the appendix. The appendix was then placed in Endo Catch bag and removed through the umbilical incision. The staple line was inspected and found to be hemostatic and intact. The 2 5 mm ports are removed under direct visualization. The balloon trocar was deflated and removed and all the air was removed from the abdomen. The umbilical incision fascia was closed with an 0 Vicryl [id number] suture. The incisions were then irrigated with saline and dried. Local anesthetic was injected into the incision sites. The skin incisions were then closed with interrupted 4-0 Monocryl suture and Steri-Strips. Bandages were applied and the patient was awoken and taken to PACU in stable condition. Patient tolerated the procedure well. Surgical Findings: Inflamed appendix Complications Complications: No Admit VTE Documentation VTE Mechan Device Prophylaxis: SCD's
--- NOTE | 2025-10-16 10:15 | PCM.POST.ANE ---
Anesthesia: Postop Eval I Current Vital Signs Temperature: 98.7 F Pulse Rate: 109 Blood Pressure: 125/58 Respiratory Rate: 14 Pulse Ox: 100 Oxygen Delivery Method: Room Air Assessment Airway patent: Yes Spontaneous unlabored respirations: Yes Mental status: Awake and Calm nausea: No Vomiting: No Anesthesia Complication: No Fluid Hydration Crystalloid volume administer (ml): 200 Total IV fluid infused: 200 Progress Note Post-operative progress note: Pt to PACU awake, VSS report to RN Anesthesia document: Postop Eval 1 completed: Yes
--- NOTE | 2025-10-16 10:20 | APP_PTH ---
PATIENT: SAGAR AYALA LOC: [facility] U#:[id number] AGE/SX: 35/M [place] [facility] [place]: Dr. Alin Solo MD : 1990 BED: 1 DIS: 10/16/2025 SPEC #: [id number] RECD: 10/17/25 07:51 STATUS: ABHILASH REQ #: [id number] BRAIN: 10/16/25 10:[address]: Alin Solo DEPT: SURGICAL PATHOLOGY RECD BY: Anant Crabtree ENTERED: 10/17/25 11:31 SP TYPE: APPENDIX OTHR DR: Dr. Yuval Jerry, Tissues: A - Appendix, NOS Procedures: Surgery Specimen Level III HEADER OPERATION: Laparoscopic appendectomy PRE-OP DIAGNOSIS: Acute appendicitis TISSUE SUBMITTED: A- Appendix MICROSCOPIC DIAGNOSIS A. Appendix, appendectomy: - Acute appendicitis. MICROSCOPIC DESCRIPTION Slides are reviewed. GROSS DESCRIPTION A. Received in formalin labeled with the patient's name and date of . Designated as appendix is a 5.3 x 1.2 cm abrams to erythematous dilated appendix with attached, congested mesoappendix. The margin is inked black and shaved. Sectioning reveals abrams-yellow to red granular mucosa devoid of luminal contents. Definitive mass lesions are not grossly appreciated. Client Application Support Engineer sections are submitted in 2 cassettes, to include the trisected distal tip in both cassettes A1-A2. SD 10/17/2025 CPT:13564
--- NOTE | 2025-10-16 15:29 | NURSING ---
1515 called into patient room. patient experienced dizziness and feeling flushed, passed quickly. patient eating snack and feeling better Kelvin Zacarias RN
[2025-10-16] MEDS: FLU VACCINE 2025-26(6MOS UP) 45 MCG/0.5 ML SYRINGE IM (16:35)
--- NOTE | 2025-10-17 07:37 | POSTOPAN2_ITS ---
Anesthesia Postop Eval I Sum Postop Eval Completion status Anesthesia document: Postop Eval 1 completed: Yes Anesthesia Postop Eval I Summary Anesthesia Postop Eval I Summary: Anesthesia Postop Eval I: Assessment Summary Airway patent Yes 10/16/25 10:17 PRESS BOX [email or web address].[email or web address] Spontaneous unlabored Yes 10/16/25 10:17 PRESS BOX [email or web address] respirations Mental status Awake,Calm 10/16/25 10:17 PRESS BOX [email or web address].SHOL nausea No 10/16/25 10:17 PRESS BOX [email or web address].SHOL Vomiting No 10/16/25 10:17 PRESS BOX [email or web address].SHOL Anesthesia Postop Eval I: Fluid Summary Crystalloid volume administer 200 10/16/25 10:17 PRESS BOX [email or web address].SHOL (ml) Colloids volume administered ( ml) Blood Product volume administered (ml) Total IV fluid infused 200 10/16/25 10:17 PRESS BOX [email or web address].SHOL Anesthesia Postop Eval I: Summary Notes Anesthesia Complication No 10/16/25 10:17 PRESS [email or web address] [email or web address] Anesthesia Complication Comment: Post-operative progress note Pt to PACU awake, 10/16/25 10:17 PRESS BOX [email or web address] VSS report to RN Anesthesia: Postop Eval II Evaluation Mental status: Awake Pain Level: 0 nausea: No Vomiting: No
--- NOTE | 2025-10-17 07:37 | PCM.POSTANE2 ---
Anesthesia Postop Eval I Sum Postop Eval Completion status Anesthesia document: Postop Eval 1 completed: Yes Anesthesia Postop Eval I Summary Anesthesia Postop Eval I Summary: Anesthesia Postop Eval I: Assessment Summary Airway patent Yes 10/16/25 10:17 ASSISTANT FLOOR COVERING PRINTER.SHOL Spontaneous unlabored Yes 10/16/25 10:17 ASSISTANT FLOOR COVERING PRINTER.[email or web address] respirations Mental status Awake,Calm 10/16/25 10:17 ASSISTANT FLOOR COVERING PRINTER.SHOL nausea No 10/16/25 10:17 ASSISTANT FLOOR COVERING PRINTER.SHOL Vomiting No 10/16/25 10:17 ASSISTANT FLOOR COVERING PRINTER.SHOL Anesthesia Postop Eval I: Fluid Summary Crystalloid volume administer 200 10/16/25 10:17 ASSISTANT FLOOR COVERING PRINTER.SHOL (ml) Colloids volume administered ( ml) Blood Product volume administered (ml) Total IV fluid infused 200 10/16/25 10:17 ASSISTANT FLOOR COVERING PRINTER.SHOL Anesthesia Postop Eval I: Summary Notes Anesthesia Complication No 10/16/25 10:17 ASSISTANT FLOOR COVERING PRINTER.[email or web address] Anesthesia Complication Comment: Post-operative progress note Pt to PACU awake, 10/16/25 10:17 ASSISTANT FLOOR COVERING PRINTER.[email or web address] VSS report to RN Anesthesia: Postop Eval II Evaluation Mental status: Awake Pain Level: 0 nausea: No Vomiting: No
== END 2025-10-16 16:45 | disposition home or self-care (01) ==
PROVIDERS: Admitting Provider Surgery; PCP Family Medicine; Visit Provider Surgery
PROC: 0DTJ4ZZ Resection of Appendix, Percutaneous Endoscopic Approach (ICD-10-PCS; CPT 44970; principal; 2025-10-16 10:00)
DX: K35.80 Unspecified acute appendicitis (principal); F17.290 Nicotine dependence, other tobacco product, uncomplicated
CPT/HCPCS: 44970; 00840; 88304; 96361; 96365; 96366; 99221; A4216; G0378; J2405